=== PATIENT | male | born 1950 | race African-American/Black ===

== ENCOUNTER 2016-10-08 06:10 | Emergency (ER) | payer MEDICARE, OTHER ==
[~2016-10-08] VITALS: Ht 177.8 cm; Wt 121.5 kg
[~2016-10-08 06:10] MED LIST: ALBU8I INH; ALLO300 PO; ASPI-119 PO; DIOV80TA4 PO; GLIM4TAB PO; GLUCTAB OR; HYDR12.56 PO; LOTRCRE TOP; MAGN400T19 PO; METO50TA OR; SIMV40 PO; VITA20003 PO; ZITH250T PO
[2016-10-08 06:20] VITALS: BP 111/84; PULSE 117; RESP 22; TEMP 98.6; O2SAT 97
[2016-10-08 06:54] VITALS: BP 111/73; PULSE 110; RESP 20; O2SAT 95
[2016-10-08] MEDS ORDERED: MAGN400T2 PO (07:02)
[2016-10-08] MEDS ORDERED: METF1000 PO (07:02)
[2016-10-08] MEDS ORDERED: ZOCO40TA PO (07:02)
[2016-10-08] MEDS ORDERED: METO25TA3 PO (07:02)
[2016-10-08] MEDS ORDERED: D-20TAB3 PO (07:02)
[2016-10-08] MEDS ORDERED: ALLO300T2 PO (07:02)
[2016-10-08] MEDS ORDERED: DIOV160T6 PO (07:02)
[2016-10-08] MEDS ORDERED: GLIM4TAB PO (07:02)
[2016-10-08] MEDS ORDERED: HYDR12.57 PO (07:02)
[2016-10-08] MEDS ORDERED: VENTAER INH (07:02)
[2016-10-08] MEDS ORDERED: ASPI1TAB69 PO (07:02)
[2016-10-08] MEDS: RESP: ALBUTEROL 2.5 MG/IPRATROPIUM 0.5 MG NEB (SCH) INH (07:29)
[2016-10-08] MEDS ORDERED: SODIUM CHLOR 0.9% 1000 ML INJ 1,000 ML IV ONE (07:30)
[2016-10-08] MEDS ORDERED: methylPREDNISolone SOD SUCC 125 MG/2 ML VIAL IVP ONE (07:30)
[2016-10-08] MEDS ORDERED: SODIUM CHLORIDE 0.9% FLUSH 5 ML FLUSH IVF PRN (07:30)
[2016-10-08 07:33] VITALS: O2SAT 91
--- NOTE | 2016-10-08 07:34 | PD ---
HPI Chief Complaint: Cold / Flu Symptoms Time Seen by Provider: 06:59 Travel History International Travel<30 days: No Contact w/Intl Traveler<30days: No Traveled to known affect area: No History of Present Illness HPI Patient is a 65-year-old male presents to emergency room with complaints of cough and congestion for the past 2 weeks. Patient reports that for the past 2 weeks, he has had increased productive cough with thick yellowish to greenish sputum. Patient denies any fevers or chills. Patient reports no sick contacts or recent travels. Patient reports that he was seen by his primary care doctor last week and was given a course of antibiotics - reports that he completed his Z-Robert yesterday. Patient reports that he was prescribed some Tessalon Perles for cough, reports that this has not helped him. Patient reports that when he coughs, his chest feels tight. Denies chest pain or pressure. Patient with no other complaints. PFSH Past Medical History Hx Anticoagulant Therapy: Yes (81 MG ASA DAILY) High Cholesterol: Yes Congestive Heart Failure: No Cerebrovascular Accident: Yes (2007) Diabetes: Yes (TYPE 2) Patient Takes Glucophage: Yes Diminished Hearing: No GERD: Yes Gout: Yes Genitourinary: No Hypertension: Yes Implanted Vascular Access Dvce: No Musculoskeletal: No Neurologic: Yes Respiratory: Yes Immunizations Current: Yes Sleep Apnea: Yes Influenza Vaccination: No ?: Not Past Surgical History Abdominal Surgery: Yes (HERNIA REPAIR 2007) Other Surgery: Yes Social History Alcohol Use: No Tobacco Use: No Substance Use: No Allergies-Medications (Allergen,Severity, Reaction): Coded Allergies: No Known Allergies (Verified , 10/08/16) Reported Meds & Prescriptions Reported Meds & Active Scripts Active Levaquin (Levofloxacin) 750 Mg Tab 750 Mg PO DAILY 7 Days Promethazine-Codeine Liq 6.25-10 Mg/5 Ml Syrp 10 Ml PO Q6H PRN 7 Days Proair Hfa 8.5 GM Inh (Albuterol Sulfate) 90 Mcg/Act Aer 2 Puff INH Q4-6H PRN 108 mcg/actuation Prednisone 20 Mg Tab 20 Mg PO BID 5 Days Reported Zocor (Simvastatin) 40 Mg Tab 40 Mg PO HS Diovan (Valsartan) 160 Mg Tab 160 Mg PO DAILY Hydrochlorothiazide 12.5 Mg Cap 12.5 Mg PO BID Metoprolol Tartrate 25 Mg Tab 25 Mg PO DAILY Metformin (Metformin HCl) 1,000 Mg Tab 1,000 Mg PO BIDPC With meals Magnesium Oxide 400 Mg Tab 400 Mg PO DAILY Glimepiride 4 Mg Tab 4 Mg PO DAILY Take with breakfast or first main meal D-2000 Maximum Strength (Cholecalciferol) 2,000 Unit Tab 2,000 Units PO DAILY Aspirin 81 Mg Tabdr 81 Mg PO DAILY Allopurinol 300 Mg Tab 300 Mg PO DAILY Ventolin Hfa 18 GM Inh (Albuterol Sulfate) 90 Mcg/Act Aer 2 Puff INH Q6H PRN Review of Systems General / Constitutional: No: Fever, Chills Eyes: No: Visual changes HENT: No: Headaches Cardiovascular: No: Chest Pain or Discomfort, Palpitations Respiratory: Positive: Cough, Shortness of Breath, Wheezing Gastrointestinal: No: Abdominal Pain Genitourinary: No: Dysuria Musculoskeletal: No: Pain Skin: No Rash Neurologic: No: Weakness Psychiatric: No: Depression Endocrine: No: Polydipsia Hematologic/Lymphatic: No: Easy Bruising Physical Exam Narrative GENERAL: No acute distress, nontoxic SKIN: Warm and dry. HEAD: Atraumatic. Normocephalic. EYES: Pupils equal and round. No scleral icterus. No injection or drainage. ENT: No nasal bleeding or discharge. Mucous membranes pink and moist. NECK: Trachea midline. No JVD. CARDIOVASCULAR: Regular rate and rhythm. No murmur appreciated. RESPIRATORY: No accessory muscle use. Breath sounds equal bilaterally. Patient with scattered expiratory wheezing GASTROINTESTINAL: Abdomen soft, non-tender, nondistended. Hepatic and splenic margins not palpable. MUSCULOSKELETAL: No obvious deformities. No clubbing. No cyanosis. No edema. NEUROLOGICAL: Awake and alert. No obvious cranial nerve deficits. Motor grossly within normal limits. Normal speech. PSYCHIATRIC: Appropriate mood and affect; insight and judgment normal. Data Data Last Documented VS Vital Signs Date Time Temp Pulse Resp B/P Pulse Ox O2 Delivery O2 Flow Rate FiO2 10/08/16 08:24 100 20 146/74 96 Room Air 10/08/16 07:33 21 10/08/16 06:20 98.6 Orders Complete Blood Count With Diff (10/08/16 07:16) Comprehensive Metabolic Panel (10/08/16 07:16) B-Type Natriuretic Peptide (10/08/16 07:16) Act Partial Throm Time (Ptt) (10/08/16 07:16) Prothrombin Time / Inr (Pt) (10/08/16 07:16) Magnesium (Mg) (10/08/16 07:16) Influenzae A/B Antigen (10/08/16 07:16) Iv Access Insert/Monitor (10/08/16 07:16) Electrocardiogram (10/08/16 07:16) Oximetry (10/08/16 07:16) Oxygen Administration (10/08/16 07:16) Chest, Pa & Lat (10/08/16 07:16) Sodium Chloride 0.9% Flush (Ns Flush) (10/08/16 07:30) Methylprednisolone So Succ Inj (Solumedr (10/08/16 07:30) Albuterol-Ipratropium Neb (Duoneb Neb) (10/08/16 07:30) Sodium Chlor 0.9% 1000 Ml Inj (Ns 1000 M (10/08/16 07:30) Albuterol Neb (Albuterol Neb) (10/08/16 09:00) Labs Laboratory Tests Test 10/08/16 07:35 White Blood Count 8.9 TH/MM3 Red Blood Count 4.92 MIL/MM3 Hemoglobin 13.5 GM/DL Hematocrit 41.8 % Mean Corpuscular Volume 85.0 FL Mean Corpuscular Hemoglobin 27.5 PG Mean Corpuscular Hemoglobin 32.4 % Concent Red Cell Distribution Width 13.8 % Platelet Count 222 TH/MM3 Mean Platelet Volume 8.0 FL CBC Comment AUTO DIFF Differential Total Cells 100 Counted Neutrophils % (Manual) 44 % Band Neutrophils % 3 % Lymphocytes % 41 % Monocytes % 12 % Neutrophils # (Manual) 4.2 TH/MM3 Differential Comment FINAL DIFF MANUAL Prothrombin Time 9.8 SEC Prothromb Time International 0.9 RATIO Ratio Activated Partial 24.3 SEC Thromboplast Time Sodium Level 137 MEQ/L Potassium Level 3.5 MEQ/L Chloride Level 100 MEQ/L Carbon Dioxide Level 26.5 MEQ/L Anion Gap 11 MEQ/L Blood Urea Nitrogen 17 MG/DL Creatinine 1.50 MG/DL Estimat Glomerular Filtration 57 ML/MIN Rate Random Glucose 159 MG/DL Calcium Level 8.1 MG/DL Magnesium Level 2.3 MG/DL Total Bilirubin 0.4 MG/DL Aspartate Amino Transf 146 U/L (AST/SGOT) Alanine Aminotransferase 76 U/L (ALT/SGPT) Alkaline Phosphatase 68 U/L B-Type Natriuretic Peptide LESS THAN 2 PG/ML Total Protein 7.3 GM/DL Albumin 2.8 GM/DL MDM Medical Decision Making Medical Screen Exam Complete: Yes Emergency Medical Condition: Yes Interpretation(s) EKG at 0717: Sinus tach at 103 bpm, QT/QTc: 348/423 Vital Signs Date Time Temp Pulse Resp B/P Pulse Ox O2 Delivery O2 Flow Rate FiO2 10/08/16 07:04 110 20 96 Room Air 10/08/16 06:54 110 20 111/73 95 10/08/16 06:20 98.6 117 22 111/84 97 Room Air Differential Diagnosis Pneumonia, COPD exacerbation, pneumothorax, acute abnormality, influenza Narrative Course Patient is a 65-year-old male who presents to emergency room with complaints of productive cough for the past 2 weeks. Patient reports that he has not been febrile for the past 2 weeks, he is just completed a course of antibiotics. Patient nontoxic evaluation, patient is coughing up thick green to yellow sputum. X-ray ordered to evaluate for possible pneumonia as patient has not had an x-ray by his primary care doctor. Patient does complain of chest tightness every time he has a "coughing fit", EKG obtained, patient with sinus tachycardia at 103 bpm, evidence of acute ST-T wave changes. Patient reports of no chest tightness at rest Patient is wheezing on evaluation, patient reports that 20 year history of smoking in the past, patient currently does not smoke. IV steroids as well as neb treatment ordered for patient. CBC, BMP ordered as well as influenza CBC: wnl BMP: cr 1.5 (baseline 1.22) Influenza: Negative 0858 patient reevaluated, patient with decreased wheezing on evaluation, reviewed all labs and all studies with patient in detail. Patient with most likely acute bronchitis. Discussed with patient that I will send him home on prednisone, albuterol puffer, antibiotics. Patient instructed to follow up with his primary care doctor and return to ER as needed. Signs and symptoms of when to return to ER reviewed patient in detail. Diagnosis Primary Impression: COPD exacerbation Additional Impression: Acute bronchitis Qualified Code: J20.9 - Acute bronchitis, unspecified organism Patient Instructions: General Instructions Additional Instructions: Please follow-up with the primary care doctor Please take Tylenol or Motrin for fever Please complete full course of antibiotics Return to ER as needed Please make sure you drink plenty of fluids to maintain hydration Med/Other Pt SpecificInfo: Prescription(s) given Scripts Levofloxacin (Levaquin)750 Mg Qya737 Mg PO DAILY 7 Days Ref 0 Prov:Digna Cortez DO 10/08/16 Promethazine-Codeine Liq 6.25-10 Mg/5 Ml Syrp10 Ml PO Q6H PRN (COUGH AND/OR COLD SYMPTOMS) 7 Days Ref 0 Prov:Digan Cortez DO 10/08/16 Albuterol 8.5 GM Inh (Proair Hfa 8.5 GM Inh)90 Mcg/Act Aer2 Puff INH Q4-6H PRN ( SHORTNESS OF BREATH) #1 INHALER Ref 0 108 mcg/actuation Prov:Digna Cortez DO 10/08/16 Prednisone 20 Mg Tab20 Mg PO BID 5 Days Ref 0 Prov:Digna Cortez DO 10/08/16 Disposition: 01 DISCHARGE HOME Digna Cortez DO Oct 08, 2016 07:34
[2016-10-08 07:41] VITALS: BP 99/58; PULSE 103; RESP 20; O2SAT 98
[2016-10-08 07:45] LABS: HEMATOCRIT 41.8 % (39.0-51.0); MEAN CORPUSCULAR HEMOGLOBIN 27.5 PG (27.0-34.0); MEAN CORPUSCULAR HGB CONC 32.4 % (32.0-36.0); PLATELET COUNT 222 TH/MM3 (150-450); RED BLOOD COUNT 4.92 MIL/MM3 (4.50-5.90); RED CELL DISTRIBUTION WIDTH 13.8 % (11.6-17.2); WHITE BLOOD COUNT 8.9 TH/MM3 (4.0-11.0)
[2016-10-08 07:50] LABS: HEMO FLAGS AUTO DIFF
[2016-10-08 07:52] LABS: CHLORIDE 100 MEQ/L (98-107); POTASSIUM 3.5 MEQ/L (3.5-5.1); SODIUM (NA) 137 MEQ/L (136-145)
[2016-10-08 07:56] LABS: ANION GAP 11 MEQ/L (5-15); APTT (PATIENT) 24.3 SEC (24.3-30.1); BICARBONATE 26.5 MEQ/L (21.0-32.0); INTERNATIONAL NORMALIZED RATIO 0.9 RATIO; MAGNESIUM 2.3 MG/DL (1.5-2.5); PROTHROMBIN TIME - PATIENT 9.8 SEC (9.8-11.6)
[2016-10-08 07:57] LABS: BLOOD UREA NITROGEN 17 MG/DL (7-18)
[2016-10-08 07:59] LABS: ALT (GPT) 76 U/L (12-78)
[2016-10-08 08:00] LABS: AST (GOT) 146 U/L (15-37); GLOMERULAR FILTRATION RATE 57 ML/MIN (>89)
[2016-10-08 08:01] LABS: TOTAL BILIRUBIN ADULT 0.4 MG/DL (0.2-1.0)
[2016-10-08 08:02] LABS: ALKALINE PHOSPHATASE 68 U/L (45-117)
[2016-10-08 08:17] LABS: BANDS 3 % (0-6); NEUTROPHIL # MANUAL DIFF 4.2 TH/MM3 (1.8-7.7); POLYS (SEG NEUTROPHILS) 44 % (16-70); SCAN/DIFF FINAL DIFF MANUAL; WBC DIFF SAMPLE 100
[2016-10-08] MEDS ORDERED: ALBUAER3 INH (08:22)
[2016-10-08] MEDS ORDERED: PRED20 PO (08:22)
[2016-10-08] MEDS ORDERED: PROM6.256 PO (08:23)
[2016-10-08 08:24] VITALS: BP 146/74; PULSE 100; RESP 20; O2SAT 96
[2016-10-08] MEDS ORDERED: RESP: ALBUTEROL 2.5 MG/3 ML NEB (SCH) NEB ONE (09:00)
--- NOTE | 2016-10-08 09:00 | RADHPO ---
EXAM DATE/TIME: 10/08/2016 08:14 [facility] COMPARISON: CHEST PA & LAT, October 11, 2015, 20:46. INDICATIONS : Cough and congestion. MEDICAL HISTORY : Diabetes mellitus type II. Hypertension. SURGICAL HISTORY : None. ENCOUNTER: Initial ACUITY: 2 weeks PAIN SCORE: 0/10 LOCATION: Bilateral chest FINDINGS: PA and lateral views of the chest demonstrate the lungs to be symmetrically aerated without evidence of mass, infiltrate or effusion. The cardiomediastinal contours are unremarkable. Osseous structure s are intact. CONCLUSION: Normal examination. Artem Hernández MD on October 08, 2016 at 8:59 Board Certified Radiologist. This report was verified electronically.
[2016-10-08] MEDS ORDERED: LEVA750T PO ×2 (09:01→09:38)
[2016-10-08 09:50] VITALS: BP 145/88
--- NOTE | 2016-10-09 18:22 | EKG ---
Date Performed: 10/08/2016 Time Performed: 07:17:16 PTAGE: 65 years EKG: Sinus tachycardia Left anterior fascicular block Septal T wave changes are nonspecific Sinc e previous tracing, no significant change noted Borderline ECG PREVIOUS TRACING : 03/26/2014 21.18 DOCTOR: Edie Hancock Interpretating Date/Time 10/09/2016 18:20:48
== END 2016-10-08 09:51 | disposition home or self-care (01) ==
LOC: PHED 06:10
DX: J44.1 Chronic obstructive pulmonary disease with (acute) exacerbation (principal); J20.9 Acute bronchitis, unspecified; E11.9 Type 2 diabetes mellitus without complications; I10 Essential (primary) hypertension; G47.30 Sleep apnea, unspecified; R00.0 Tachycardia, unspecified; I44.4 Left anterior fascicular block
CPT/HCPCS: 71020; 80053; 83735; 83880; 85007; 85027; 85610; 85730; 87804; 93005; 94640; 94664; 96361; 96374; 99284; J2930; J7030; J7613

== ENCOUNTER 2017-09-26 13:18 | Emergency (ER) | payer MEDICARE, OTHER ==
[~2017-09-26] VITALS: Ht 177.8 cm; Wt 122.0 kg
[~2017-09-26 13:18] MED LIST changes: -ALBU8I INH; +ALBUAER3 INH; -ALLO300 PO; +ALLO300T2 PO; -ASPI-119 PO; +ASPI1TAB69 PO; +D-20TAB3 PO; +DIOV160T6 PO; -DIOV80TA4 PO; -GLUCTAB OR; -HYDR12.56 PO; +HYDR12.57 PO; +LEVA750T PO; -LOTRCRE TOP; -MAGN400T19 PO; +MAGN400T2 PO; +METF1000 PO; +METO25TA3 PO; -METO50TA OR; +PRED20 PO; +PROM6.256 PO; -SIMV40 PO; +VENTAER INH; -VITA20003 PO; -ZITH250T PO; +ZOCO40TA PO
[2017-09-26 13:21] VITALS: BP 140/103; PULSE 77; RESP 18; TEMP 98.4; O2SAT 97
--- NOTE | 2017-09-26 14:03 | PD ---
HPI Chief Complaint: Cold / Flu Symptoms Time Seen by Provider: 13:40 Travel History International Travel<30 days: No Contact w/Intl Traveler<30days: No Traveled to known affect area: No History of Present Illness HPI 66-year-old male presents emergency Department with complaint of cough 1 month. Denies history of COPD, although I reviewed his record and there was a COPD exacerbation diagnosis in October 2016. Denies ear pain, sore throat, nasal congestion, fevers, chest pain, chest tightness, shortness of breath, wheezing. Reports occasional sputum production. Denies hemoptysis. Has tried Mucinex, DayQuil, NyQuil, [place], cough drops with no relief of symptoms. Cough is worse at night. No known aggravating or relieving factors. Has an established primary care provider. History of diabetes mellitus. Takes baby aspirin daily. No known allergies. Has no other medical complaints. No other modifying factors or associated signs and symptoms. PFSH Past Medical History Hx Anticoagulant Therapy: Yes (BABY ASA) Cardiovascular Problems: Yes (HTN, CHOL) High Cholesterol: Yes Congestive Heart Failure: No Cerebrovascular Accident: Yes (CVA) Diabetes: Yes (TYPE 2) Patient Takes Glucophage: Yes Diminished Hearing: No GERD: Yes Gout: Yes Genitourinary: No Hypertension: Yes Implanted Vascular Access Dvce: No Musculoskeletal: No Neurologic: Yes Respiratory: Yes Immunizations Current: Yes Sleep Apnea: Yes Influenza Vaccination: Yes ?: Not Past Surgical History Abdominal Surgery: Yes (HERNIA REPAIR 2007) Other Surgery: Yes Social History Alcohol Use: No Tobacco Use: No Substance Use: No Allergies-Medications (Allergen,Severity, Reaction): Coded Allergies: No Known Allergies (Verified Adverse Reaction, Unknown, 09/26/17) Reported Meds & Prescriptions Reported Meds & Active Scripts Active Tessalon Perles (Benzonatate) 100 Mg Cap 100 Mg PO TID PRN 3 Days Azithromycin 500 Mg Tab 500 Mg PO DAILY Deltasone (Prednisone) 20 Mg Tab 20 Mg PO BID 5 Days Ventolin Hfa 18 GM Inh (Albuterol Sulfate) 90 Mcg/Act Aer 2 Puff INH Q4-6H PRN Reported Zocor (Simvastatin) 40 Mg Tab 40 Mg PO HS Diovan (Valsartan) 160 Mg Tab 160 Mg PO DAILY Hydrochlorothiazide 12.5 Mg Cap 12.5 Mg PO BID Metoprolol Tartrate 25 Mg Tab 25 Mg PO DAILY Metformin (Metformin HCl) 1,000 Mg Tab 1,000 Mg PO BIDPC With meals Magnesium Oxide 400 Mg Tab 400 Mg PO DAILY Glimepiride 4 Mg Tab 4 Mg PO DAILY Take with breakfast or first main meal D-2000 Maximum Strength (Cholecalciferol) 2,000 Unit Tab 2,000 Units PO DAILY Allopurinol 300 Mg Tab 300 Mg PO DAILY Ventolin Hfa 18 GM Inh (Albuterol Sulfate) 90 Mcg/Act Aer 2 Puff INH Q6H PRN Review of Systems Except as stated in HPI: all other systems reviewed are Neg Physical Exam Narrative GENERAL: Well-nourished, well-developed black male patient, in no acute distress ; afebrile, nontoxic-appearing SKIN: Warm and dry. No rash. HEAD: Atraumatic. Normocephalic. EYES: Pupils equal and round. No scleral icterus. No injection or drainage. ENT: Mucosa pink and moist. No erythema or exudates. No uvular edema. No uvular , palatal, or tonsillar deviation. Airway patent. EARS: Bilateral pinnae and external canals appear within normal limits. Bilateral tympanic membranes without erythema, dullness or perforation. NECK: Trachea midline. No lymphadenopathy. CARDIOVASCULAR: Regular rate and rhythm. No murmur appreciated. RESPIRATORY: No accessory muscle use. Clear to auscultation. Breath sounds equal bilaterally. No retractions or tachypnea. GASTROINTESTINAL: Abdomen soft, non-tender, nondistended. Hepatic and splenic margins not palpable. Bowel sounds are active 4 quadrants. MUSCULOSKELETAL: No obvious deformities. No clubbing. No cyanosis. No edema. NEUROLOGICAL: Awake and alert. Oriented 3. No obvious cranial nerve deficits. Motor grossly within normal limits. Normal speech. Moves all extremities. 5/5 strength to all extremities. PSYCHIATRIC: Appropriate mood and affect; insight and judgment normal. Data Data Last Documented VS Vital Signs Date Time Temp Pulse Resp B/P (MAP) Pulse Ox O2 Delivery O2 Flow Rate FiO2 09/26/17 13:21 98.4 77 18 140/103 (115) 97 Orders Orders Chest, Single Ap (09/26/17 13:44) Influenzae A/B Antigen (09/26/17 13:44) Ed Discharge Order (09/26/17 15:34) Prednisone (Deltasone) (09/26/17 15:45) [facility] Medical Decision Making Medical Screen Exam Complete: Yes Emergency Medical Condition: Yes Medical Record Reviewed: Yes Differential Diagnosis Bronchitis, URI, pneumonia, COPD exacerbation Narrative Course 66-year-old male with cough 1 month. I reviewed his record from October 2016 and he was diagnosed with COPD exacerbation, but He denies history of COPD. Patient is in no acute distress. Lungs Sounds are clear and equal throughout. No wheezing, retractions, tachypnea. Oxygen saturation is 97% on room air. Chest x-ray and influenza ordered. I offered the patient a breathing treatment and he declined. 1407: Influenza negative. 1531: Chest x-ray with no acute disease. I will treat the patient as if he is having a COPD exacerbation. Ventolin, Deltasone, azithromycin prescribed for home. 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 1538: As I was discussing the treatment plan of care the patient says he has inhalers at home. When I asked him again about COPD he says he does have COPD and he is treated for COPD. I will give the patient Deltasone 50 mg in the ER prior to discharge. Instructed patient to follow up with primary care provider. Patient verbalizes understanding and agreement with treatment plan. Patient is medically cleared and stable for discharge. Discussed reasons to return to the emergency department. Patient agrees with treatment plan. The patients vital signs are stable and the patient is stable for outpatient follow- up and treatment. Patient discharged home, stable and in no acute distress. 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 Patient Instructions: COPD (Chronic Obstructive Pulmonary Disease) (ED), General Instructions Additional Instructions: Use Albuterol inhaler as prescribed Take oral steroids as prescribed and complete full course [id number] decongestants or antihistamines as directed and as needed for symptom management Your cough can last 4-6 weeks Drink plenty of fluids to prevent dehydration Use hot air humidifier to decrease cough exacerbation Turn off ceiling fans and sleep with head of bed elevated Avoid triggers such as second hand smoke, dust, known allergens Follow-up with your primary care provider Follow-up with retort kiln burner Return to the emergency department immediately with worsening of symptoms Med/Other Pt SpecificInfo: Prescription(s) given Scripts Benzonatate (Tessalon Perles) 100 Mg Cap 100 MG PO TID Y for COUGH for 3 Days, CAP 0 Refills Prov: Mary Jo RamachandranP 09/26/17 Azithromycin (Azithromycin) 500 Mg Tab 500 MG PO DAILY for Infection, #5 TAB 0 Refills Prov: Mary Jo RamachandranP 09/26/17 Prednisone (Deltasone) 20 Mg Tab 20 MG PO BID for 5 Days, #10 TAB 0 Refills Prov: Mary Jo RamachandranP 09/26/17 Albuterol 18 GM Inh (Ventolin Hfa 18 GM Inh) 90 Mcg/Act Aer 2 PUFF INH Q4-6H Y for SOB/WHEEZING, #1 INHALER 0 Refills Prov: Mary Jo Ramachandran 09/26/17 Disposition: 01 DISCHARGE HOME Condition: Stable Mary Jo Ramachandran Sep 26, 2017 14:03
--- NOTE | 2017-09-26 15:17 | RADRPT ---
EXAM DATE/TIME: 09/26/2017 14:11 [facility] COMPARISON: CHEST SINGLE AP, July 25, 2014, 8:58. INDICATIONS : Cough. MEDICAL HISTORY : Diabetes mellitus type II. Hypertension. SURGICAL HISTORY : None. ENCOUNTER: Initial ACUITY: 1 month PAIN SCORE: 0/10 LOCATION: Bilateral chest FINDINGS: A single view of the chest demonstrates the lungs to be symmetrically aerated without evidence of mas s, infiltrate or effusion. The cardiomediastinal contours are unremarkable. Osseous structures are intact. CONCLUSION: No acute disease. Ralph Lake Jr., MD on September 26, 2017 at 15:14 Board Certified Radiologist. This report was verified electronically.
[2017-09-26] MEDS ORDERED: BENZ100 PO (15:33)
[2017-09-26] MEDS ORDERED: VENTAER INH (15:33)
[2017-09-26] MEDS ORDERED: PRED-503 PO (15:33)
[2017-09-26] MEDS ORDERED: AZIT500T2 PO (15:33)
[2017-09-26] MEDS ORDERED: predniSONE 50 MG TAB PO ONE (15:45)
== END 2017-09-26 15:48 | disposition home or self-care (01) ==
LOC: PHEFT 13:18
DX: J44.1 Chronic obstructive pulmonary disease with (acute) exacerbation (principal); E78.00 Pure hypercholesterolemia, unspecified; E11.9 Type 2 diabetes mellitus without complications; I10 Essential (primary) hypertension; K21.9 Gastro-esophageal reflux disease without esophagitis; M10.9 Gout, unspecified; Z79.82 Long term (current) use of aspirin; Z86.73 Personal history of transient ischemic attack (TIA), and cerebral infarction without residual deficits; Z79.84 Long term (current) use of oral hypoglycemic drugs
CPT/HCPCS: 71010; 87804; 99284; J7512